=== PATIENT | female | born 1995 | race Caucasian/White ===

== ENCOUNTER 2016-08-30 18:23 | Emergency (ER) | payer MEDICAID ==
[~2016-08-30] VITALS: Ht 157.5 cm; Wt 62.5 kg
[~2016-08-30 18:23] MED LIST: FOLIC ACID
[2016-08-30 18:36] VITALS: Ht 157.5 cm; Wt 62.5 kg
[2016-08-30 20:15] LABS: HEMATOCRIT 35.7 % (37.0-47.0); HEMOGLOBIN 11.6 g/dl (12.0-16.0); MEAN CORPUSCULAR HEMOGLOBIN 25.5 pg (29.0-33.0); MEAN CORPUSCULAR HGB CONC 32.5 g/dl (32.0-37.0); MEAN CORPUSCULAR VOLUME 78.5 fl (82.0-101.0); MEAN PLATELET VOLUME 8.5 fl (7.4-10.4); PLATELET COUNT 314 10^3/UL (140-440); RED BLOOD COUNT 4.54 10^6/ul (4.20-5.40)
[2016-08-30 20:21] LABS: ADD UMIC YES; URINE BILIRUBIN (Dip) NEGATIVE (NEGATIVE); URINE BLOOD (Dip) NEGATIVE (NEGATIVE); URINE COLOR LT. YELLOW (YELLOW); URINE GLUCOSE (Dip) NEGATIVE (NEGATIVE); URINE KETONES (Dip) NEGATIVE (NEGATIVE); URINE LEUKOCYTE ESTERASE (Dip) TRACE (NEGATIVE); URINE NITRITE (Dip) NEGATIVE (NEGATIVE); URINE TOTAL PROTEIN (Dip) NEGATIVE (NEGATIVE); URINE UROBILINOGEN (Dip) 0.2 E.U./dL (0.1-1.0)
[2016-08-30 20:22] LABS: CONDITION 1; LH ANALYZER COMMENTS 1
[2016-08-30 20:29] LABS: BACTERIA,URINE FEW; SQUAMOUS EPITHELIAL CELL,UR FEW; URINE RBCS 0-2 /HPF (0)
[2016-08-30 21:11] VITALS: BP 119/71; PULSE 83; RESP 18; TEMP 98.9
--- NOTE | 2016-08-30 21:15 | ERD ---
ER Documentation Chief Complaint Date/Time DATE: 08/30/16 TIME: 21:10 Chief Complaint 5 weeks and dizzy spells HPI 21-year-old female Ab1 presenting with dizziness. She is currently 5 weeks by last menstrual period. She has had this in her prior pregnancies. At that time she was anemic. No vaginal bleeding. No significant vaginal discharge. She denies any fevers, chills, recent infection symptoms. No urinary frequency, burning, urgency. She is currently being treated for a yeast infection. ROS All systems reviewed and are negative except as per history of present illness. Medications Home Meds Reported Medications [Folic Acid] No Conflict Check 02/06/13 Allergies Allergies: Coded Allergies: No Known Allergy (Unverified , 02/06/13) PMhx/Soc History of Surgery: Yes (c/section x1) Anesthesia Reaction: No Hx Neurological Disorder: No Hx Respiratory Disorders: No Hx Psychiatric Problems: No Hx Miscellaneous Medical Probl: No Hx Alcohol Use: No Hx Substance Use: No Hx Tobacco Use: No Smoking Status: Never smoker Physical Exam Vitals Vital Signs Date Time Temp Pulse Resp B/P Pulse Ox O2 Delivery O2 Flow Rate FiO2 08/30/16 18:36 99.1 83 18 106/56 100 Physical Exam Const: Well-appearing, nontoxic, no distress Head: Atraumatic Eyes: Normal Conjunctiva ENT: Normal External Ears, Nose and Mouth. Neck: Full range of motion. No meningismus. Resp: Clear to auscultation bilaterally Cardio: Regular rate and rhythm, no murmurs Abd: Soft, non tender, non distended. Normal bowel sounds Skin: No petechiae or rashes Back: No midline or flank tenderness Ext: No cyanosis, or edema Neuro: M/S: Alert and oriented Face: EOMI, face and pharynx with normal sensation and function Motor: Normal strength throughout Sensation: Normal sensation throughout Speech: Normal Cerebel: Normal coordination Normal gait Psych: Normal Mood and Affect Result Diagram: 08/30/161999 Results 24 hrs Laboratory Tests Test 08/30/16 20:00 Blood Morphology Comment Hematocrit 35.7% Hemoglobin 11.6g/dl Mean Corpuscular Hemoglobin 25.5pg Mean Corpuscular Hemoglobin Concent 32.5g/dl Mean Corpuscular Volume 78.5fl Mean Platelet Volume 8.5fl Nucleated Red Blood Cells # 10^3/ul Platelet Count 84597^3/UL Red Blood Count 4.5410^6/ul Red Cell Distribution Width 16.0% Urine Bacteria FEW Urine Bilirubin NEGATIVE Urine Clarity CLEAR Urine Color LT. YELLOW Urine Glucose NEGATIVE% Urine Hemoglobin NEGATIVE Urine Ketones NEGATIVE Urine Leukocyte Esterase TRACE Urine Microscopic RBC 0-2/HPF Urine Microscopic WBC 0-2/HPF Urine Nitrite NEGATIVE Urine Specific [place] 1.010 Urine Squamous Epithelial Cells FEW Urine Total Protein NEGATIVE Urine Urobilinogen 0.2 E.U./dL Urine pH 7.0 White Blood Count 11.010^3/ul Procedures/MDM EKG: Rate/Rhythm: Normal Sinus Rhythm QRS, ST, T-waves: No changes consistent w/ acute ischemia, normal intervals Impression: No evidence of ischemia or arrhythmia The patients vitals are within normal limits and labs are unremarkable. The ECG did not show any concerning abnormalities. I have a low suspicion for an arrhythmia, acute coronary syndrome, PE or a CVA or intracranial hemorrhage. Etiology for dizziness is unknown but likely benign. She does have mild anemia , however I do not know if this is the reason for her dizziness. Her urinalysis showed only trace leukocytes. I will treat her for an infection at this time but I will send a urine culture. I have a low suspicion for acute surgical abdomen or ectopic as the patient's exam is benign. patient' s symptoms have stabilized while in the department and are suitable for outpatient follow up. I advised follow up with primary care physician and OB in 1-2 days. She was provided a copy of her blood test results. I encouraged hydration. Return precautions were discussed at bedside. Departure Diagnosis: Primary Impression: Dizziness of unknown cause Additional Impression: Anemia affecting in first trimester Condition: Stable Patient Instructions: : Body Changes, Possible Causes of Dizziness or Fainting Additional Instructions: Regrese a la jacob emergencia si usted esta empeorando. DUTCH THORNTON MD Aug 30, 2016 21:15
[2016-08-30 22:21] LABS: LYMPHOCYTES # 3.2 10^3/ul (0.8-2.9); MONOCYTE # 0.3 10^3/ul (0.3-0.9); NEUTROPHIL # 7.4 10^3/ul (1.6-7.5)
[2016-08-30 22:23] LABS: ANISOCYTOSIS 1+; MICROCYTOSIS 1+; PLATELET ESTIMATE PLT APPEAR ADEQUATE
== END 2016-08-30 21:12 | disposition home or self-care (01) ==
LOC: FTE 18:23
DX: O99.89 Other specified diseases and conditions complicating pregnancy, childbirth and the puerperium (principal); R42 Dizziness and giddiness; O99.011 Anemia complicating pregnancy, first trimester; Z3A.01 Less than 8 weeks gestation of pregnancy
CPT/HCPCS: 81001; 85025; 87086; 93005; Z7502; 81003

== ENCOUNTER 2017-01-27 19:22 | Outpatient (CLI) | payer MEDICAID ==
[~2017-01-27] VITALS: Ht 157.5 cm; Wt 68.3 kg
[2017-01-27] MEDS ORDERED: LACTATED RINGER'S 1,000 ML IV SCH (20:50)
[2017-01-27 20:51] VITALS: BP 98/56; PULSE 78; RESP 18; Ht 157.5 cm; Wt 68.3 kg
[2017-01-27] MEDS ORDERED: PREN-93 PO (20:54)
--- NOTE | 2017-01-27 22:05 | RADRPT ---
PROCEDURE: Obstetrical ultrasound. CLINICAL INDICATION: , evaluation. Pelvic pain. TECHNIQUE: Transabdominal and transvaginal sonographic images of the pelvis are obtained. COMPARISON: 12/05/2016 FINDINGS: Single intrauterine gestation. There is a cephalic presentation. Measurements were made in order to determine age. The results are as follows: BPD = 7.01 cm 28 weeks 1 day HC = 25.56 cm 27 weeks 5 days AC = 23.82 cm 28 weeks 1 day FL = 5.32 cm 28 weeks 2 days Heart rate = 138 beats per minute The placenta is anterior. There is no evidence for an abruption or placenta previa. Cervix is closed and measures 3.9 cm as visualized transvaginally. Ovaries are not visualized. IMPRESSION: Single intrauterine gestation of approximately 28 weeks 1 days by ultrasound criteria. [place] estimated weight = 1179 g; 95 percentile for gestational age of 26 weeks 3 days. Recommend confirmation of gestational age/ LMP. RPTAT: AADD .Adnrew Cho MD, MD Date Time Electronically viewed and signed by .Andrew Cho MD, on 01/27/2017 22:05 .B/
[2017-01-27 22:27] LABS: ADD UMIC YES; UR ASCORBIC ACID NEGATIVE (NEGATIVE); UR BACTERIA FEW /HPF (NONE SEEN); UR BILIRUBIN (Dip) NEGATIVE (NEGATIVE); UR BLOOD (Dip) NEGATIVE (NEGATIVE); UR CLARITY CLOUDY (CLEAR); UR COLOR YELLOW (YELLOW); UR GLUCOSE (Dip) NEGATIVE (NEGATIVE); UR KETONES (Dip) TRACE mg/dL (NEGATIVE); UR LEUKOCYTE ESTERASE (Dip) TRACE Leu/ul (NEGATIVE); UR MUCUS FEW /HPF (NONE SEEN); UR NITRITE (Dip) NEGATIVE (NEGATIVE); UR RBC 1 /HPF (0-5); UR SPECIFIC GRAVITY (Dip) 1.009 (1.003-1.030); UR SQUAMOUS EPITHELIAL CELL MANY /HPF (FEW); UR TOTAL PROTEIN (Dip) NEGATIVE (NEGATIVE); UR UROBILINOGEN (Dip) NEGATIVE (NEGATIVE)
--- NOTE | 2017-01-27 22:37 | PN ---
Triage Information Date/Time Weeks of Gestation 26+ : 4 Para: 2 Diabetes: none Additional information FOR r/O LABOR Objective Vital Signs Date Time Temp Pulse Resp B/P Pulse Ox O2 Delivery O2 Flow Rate FiO2 01/27/17 20:51 98.7 78 18 98/56 Room Air Results/Medications Results 24 hrs Laboratory Tests Test 01/27/17 21:10 Urine Color YELLOW Urine Clarity CLOUDY A Urine pH 7.0 Urine Specific [place] 1.009 Urine Ketones TRACE A Urine Nitrite NEGATIVE Urine Bilirubin NEGATIVE Urine Urobilinogen NEGATIVE Urine Leukocyte Esterase TRACE A Urine Microscopic RBC 1 Urine Microscopic WBC 3 Urine Squamous Epithelial Cells MANY A Urine Bacteria FEW A Urine Mucus FEW A Urine Hemoglobin NEGATIVE Urine Glucose NEGATIVE Urine Total Protein NEGATIVE Fibronectin NEGATIVE Medications Current Medications Lactated Ringer's (Lr) 1,000 ml @ 125 mls/hr Q8H IV Last administered on t 22:08; Admin Dose 125 MLS/HR; Start 01/27/17 at 20:50 Assessment/Plan NEG FFN CXL WNL NO CTXS NST REASSURING FOR GA PATIENT IS DISCHARGED WITH PRECAUTIONS PATIENT'S QUESTIONS ANSWERED MANNY SILVA M.D. Jan 27, 2017 22:36
--- NOTE | 2017-01-28 03:10 | TRIAGE ---
OB Triage Datetime Report Generated by CPN: 01/28/2017 03:09 Datetime: 01/27/2017 22:00 Labor Evaluation Frequency: 0 Monitor Mode: External Heart Rate FHR Baseline Rate: 145 Monitor Mode: External US FHR Baseline Changes: No Baseline Change Variability: Moderate 6-25 bpm Accelerations: 15X15 Decelerations: None Category: Category I Datetime: 01/27/2017 21:10 Vaginal Exam Dilatation (cms): 0.0 Effacement (%): 0 Station: -3 Exam By: A PARVEEN RN Vaginal Bleeding: None Cervix, Consistency: Firm Cervix, Position: Posterior Datetime: 01/27/2017 21:00 Labor Evaluation Frequency: 2/HR Monitor Mode: External Duration (sec)2399: 100 Quality: Mild Pattern: Normal: <= 5 Contractions in 10 Minutes Resting Tone [place]: Relaxed Heart Rate FHR Baseline Rate: 145 Monitor Mode: External US FHR Baseline Changes: No Baseline Change Variability: Moderate 6-25 bpm Accelerations: 15X15 Decelerations: None Category: Category I Datetime: 01/27/2017 20:00 Labor Evaluation Frequency: 5 Monitor Mode: External Duration (sec)2399: 60-100 Quality: Mild Pattern: Normal: <= 5 Contractions in 10 Minutes Resting Tone [place]: Relaxed Heart Rate FHR Baseline Rate: 135 Monitor Mode: External US FHR Baseline Changes: No Baseline Change Variability: Moderate 6-25 bpm Accelerations: 15X15 Decelerations: None Category: Category I Datetime: 01/27/2017 19:50 Membrane Status: Intact Datetime: 01/27/2017 19:45 Stage of : OB Triage Assessment Type: Triage Time of Arrival: 01/27/2017 19:15 Arrived By: Wheelchair Arrived From: Home Chief Complaint: ABDOMINAL PAIN @ 1800/ DIFFICULTY BREATHING @ 1800, FEELS FAINT/ COUGH X2 WKS Movement: Present Contractions: Irregular Rupture of Membranes: Denies Vaginal Bleeding: None (Annotations: Data stored by N on behalf of user) Vaginal Discharge: Denies Recent Sexual Intercouse: Denies Abdominal Trauma: Not Applicable Patient Complaints: None Time Provider Notified: 01/27/2017 19:47 Provider Notified: DR TRUJILLO Initial Plan: CALL [facility] Maternal Assessment Level of Consciousness: Fully Conscious DTR's/Clonus: DTRs 2+; No Clonus Headache: Denies Blurred Vision: No Respiratory Effort: Unlabored; Regular Rhythm; Equal Expansion Breath Sounds, Left: Clear and Equal Breath Sounds, Right: Clear and Equal Nausea/Vomiting: Denies RUQ Epigastric Pain: Denies Lower Extremities Edema: None Degree: None Upper Extremities Edema: None Degree: None Facial Edema: None Temperature Route: Oral Fall Risk Assessment History of Falling: (0) No Secondary Diagnosis: (0) No Ambulatory Aid: (0) Bedrest/Nurse Assist IV Therapy: (0) No Gait: (0) Normal/Bedrest/Immobile Mental Status: (0) Oriented to Own Ability Fall Score: 0 Fall Risk Score Definition: No Risk: No action required Monitor Mode: External Monitor Mode: External US Pain Assessment Pain Scale: 0
== END 2017-01-27 22:30 | disposition home or self-care (01) ==
LOC: OBT 19:22 → L-D 19:24 → OBT 22:30
PROVIDERS: ATTEND Obstetrics & Gynecology
DX: O26.893 Other specified pregnancy related conditions, third trimester (principal); Z3A.28 28 weeks gestation of pregnancy; R10.2 Pelvic and perineal pain
CPT/HCPCS: 76815; 76817; 81001; 82731; 87086; J7120

== ENCOUNTER 2017-03-12 00:16 | Emergency (ER) | payer MEDICAID ==
[~2017-03-12] VITALS: Ht 157.5 cm; Wt 71.5 kg
[~2017-03-12 00:16] MED LIST changes: +PREN-93 PO
[2017-03-12 00:35] VITALS: Ht 157.5 cm; Wt 71.5 kg
[2017-03-12] MEDS ORDERED: ACETAMINOPHEN 500 MG TAB PO STA (01:04)
--- NOTE | 2017-03-12 01:07 | ERD ---
ER Documentation Chief Complaint Date/Time DATE: 03/12/17 TIME: 01:05 Chief Complaint right lower molar ache HPI This is a 22-year-old female who is 32 weeks who presents to the emergency room for evaluation of a toothache. The patient states she has had a toothache for approximately 2 days and localizes it to the right lower tooth. She denies any trauma to the area and denies taking any medication because she that she is and did not know what she can take. She does not have a dentist and came to the ER for evaluation. ROS All systems reviewed and are negative except as per history of present illness. Medications Home Meds Reported Medications Vit No.124/Iron/FA ( Vitamin Tablet) 1 Each Tablet, 1 EACH PO, TAB 01/27/17 [Folic Acid] No Conflict Check 02/06/13 Allergies Allergies: Coded Allergies: No Known Allergy (Unverified , 01/27/17) PMhx/Soc History of Surgery: Yes (c/section x1) Anesthesia Reaction: No Hx Neurological Disorder: No Hx Respiratory Disorders: No Hx Psychiatric Problems: No Hx Miscellaneous Medical Probl: No Hx Alcohol Use: No Hx Substance Use: No Hx Tobacco Use: No Physical Exam Vitals Vital Signs Date Time Temp Pulse Resp B/P Pulse Ox O2 Delivery O2 Flow Rate FiO2 03/12/17 00:35 98.1 95 18 104/63 98 Physical Exam Const: No acute distress Head: Atraumatic Eyes: Normal Conjunctiva ENT: Right premolar extensive dental cavity, no signs of gingival abscess or dental abscess, normal External Ears, Nose and Mouth. Neck: Full range of motion..~ No meningismus. Resp: Clear to auscultation bilaterally Cardio: Regular rate and rhythm, no murmurs Abd: Soft, non tender, non distended. Normal bowel sounds Skin: No petechiae or rashes Back: No midline or flank tenderness Ext: No cyanosis, or edema Neur: Awake and alert Psych: Normal Mood and Affect Procedures/MDM This 22-year-old female presented to the ER for evaluation of dental pain. When I evaluated this patient she did have a dental carry at tooth #30. The patient was given 1 g of Tylenol in the emergency room. She will discharged home with a prescription for Tylenol, penicillin V potassium to prevent any infection, and a referral for outpatient dentistry. Departure Diagnosis: Primary Impression: Toothache Additional Impression: Dental caries Condition: Stable NEELIMA CHOE DO Mar 12, 2017 01:07
[2017-03-12] MEDS ORDERED: ACET650T26 PO (01:08)
[2017-03-12] MEDS ORDERED: PEN500 PO (01:08)
== END 2017-03-12 01:14 | disposition home or self-care (01) ==
LOC: E/R 00:16
DX: O99.613 Diseases of the digestive system complicating pregnancy, third trimester (principal); K08.89 Other specified disorders of teeth and supporting structures; K02.9 Dental caries, unspecified; Z3A.32 32 weeks gestation of pregnancy
CPT/HCPCS: Z7502; Z7610; 99283

== ENCOUNTER 2017-04-25 15:02 | Inpatient (IN) | payer MEDICAID ==
[2017-04-25] VITALS (12 sets, daily range): BP systolic 89–117; BP diastolic 46–75; PULSE 64–89; RESP 18–20; Ht 157.5 cm; Wt 74.5 kg
[~2017-04-25] VITALS: Ht 157.5 cm; Wt 74.5 kg
[~2017-04-25 15:02] MED LIST changes: +ACET650T26 PO; +PENI500T PO
[2017-04-25] MEDS ORDERED: LACTATED RINGER'S 1,000 ML IV SCH (15:20)
[2017-04-25] MEDS ORDERED: CEFAZOLIN 2 GM/50 ML (PMX) 50 ML IV SCH (15:30)
[2017-04-25] MEDS ORDERED: OXYTOCIN 30 UNITS/LR 500 ML IV PRN ×2 (15:30→22:30)
[2017-04-25] MEDS ORDERED: CARBOPROST 250 MCG INJ IM PRN ×2 (15:30→22:30)
[2017-04-25] MEDS ORDERED: MISOPROSTOL 200 MCG TAB PR PRN ×2 (15:30→22:30)
[2017-04-25] MEDS ORDERED: METHYLERGONOVINE 0.2 MG INJ IM PRN ×2 (15:30→22:30)
[2017-04-25] MEDS ORDERED: OXYTOCIN 30 UNITS/LR 500 ML IV SCH (15:30)
[2017-04-25 15:53] LABS: BASOPHIL # 0.1 10^3/ul (0.0-0.1); BASOPHILS % 0.5 % (0.0-2.0); EOSINOPHILS % 0.3 % (0.0-7.0); HEMATOCRIT 26.9 % (37.0-47.0); HEMOGLOBIN 8.5 g/dl (12.0-16.0); LYMPHOCYTES # 1.9 10^3/ul (0.8-2.9); LYMPHOCYTES % 20.6 % (15.0-51.0); MEAN CORPUSCULAR HEMOGLOBIN 23.6 pg (29.0-33.0); MEAN CORPUSCULAR HGB CONC 31.6 g/dl (32.0-37.0); MEAN CORPUSCULAR VOLUME 74.7 fl (82.0-101.0); MEAN PLATELET VOLUME 10.3 fl (7.4-10.4); MONOCYTE # 0.7 10^3/ul (0.3-0.9); MONOCYTES % 7.1 % (0.0-11.0); NEUTROPHIL # 6.5 10^3/ul (1.6-7.5); NEUTROPHILS % 70.8 % (39.0-77.0); PLATELET COUNT 208 10^3/UL (140-415); RED CELL DISTRIBUTION WIDTH 16.5 % (11.5-14.5); WHITE BLOOD COUNT 9.2 10^3/ul (4.8-10.8)
[2017-04-25 16:13] LABS: INR 1.05; PROTIME 13.7 Sec (12.2-14.2); PT RATIO 1.1
[2017-04-25 16:14] LABS: PARTIAL THROMBOPLASTIN TIME 25.3 Sec (25.0-35.0)
[2017-04-25] MEDS ORDERED: METOCLOPRAMIDE 10 MG INJ IV ONE (17:00)
[2017-04-25] MEDS ORDERED: CITRIC ACID/NA CITRATE 30 ML CUP PO ONE (17:00)
[2017-04-25] MEDS ORDERED: CITRIC ACID/NA CITRATE 30 ML CUP ONE (17:02)
[2017-04-25] MEDS ORDERED: METOCLOPRAMIDE 10 MG INJ ONE (17:02)
[2017-04-25] MEDS ORDERED: DIPHENHYDRAMINE 50 MG INJ IV PRN ×2 (19:30)
[2017-04-25] MEDS ORDERED: NALBUPHINE HCL (10 MG/1 ML) INJ IV PRN (19:30)
[2017-04-25] MEDS ORDERED: FENTAnyl 50 MCG/ML VIAL IV PRN ×3 (19:30)
[2017-04-25] MEDS ORDERED: MEPERIDINE 25 MG INJ IV PRN (19:30)
[2017-04-25] MEDS ORDERED: hydrALAzine 20 MG INJ IV PRN (19:30)
[2017-04-25] MEDS ORDERED: ALBUTEROL 0.083% (NEB) 2.5 MG/3 ML AMP HHN PRN (19:30)
[2017-04-25] MEDS ORDERED: ZOLPIDEM 5 MG TAB PO PRN (19:30)
[2017-04-25] MEDS ORDERED: LABETALOL HCL 20MG INJ IV PRN (19:30)
[2017-04-25] MEDS ORDERED: EPHEDrine SULFATE 50 MG/5 ML SYG IV PRN (19:30)
[2017-04-25] MEDS ORDERED: morphine 2 MG INJ IV PRN (19:30)
[2017-04-25] MEDS ORDERED: NALOXONE (0.4 MG/ML) INJ IV PRN (19:30)
[2017-04-25] MEDS ORDERED: IPRATROPIUM (NEB) 0.5 MG/2.5 ML AMP HHN PRN (19:30)
[2017-04-25] MEDS ORDERED: HYDROmorphONE (0.2 MG/ML) 10ML SYG IV PRN ×3 (19:30)
[2017-04-25] MEDS ORDERED: OXYCODONE/ACETAMINOPHEN (5/325) TAB PO PRN ×2 (19:30)
[2017-04-25] MEDS ORDERED: TRIMETHOBENZAMIDE 100 MG/ML VIAL IM PRN ×2 (19:30)
[2017-04-25] MEDS ORDERED: ONDANSETRON 4 MG INJ IV PRN ×2 (19:30)
[2017-04-25] MEDS ORDERED: morphine 4 MG/ML VIAL IV PRN (19:30)
--- NOTE | 2017-04-25 19:54 | HP ---
Date/Time of Note Date/Time of Note DATE: 04/25/17 TIME: 19:51 OB - History Hx of Present Free Text/Dictation Admitted for repeat at term Last Menstrual Period: Jul 26, 2016 Estimated Due Date: May 02, 2017 : 4 Para: 2 Spontaneous : 1 Care: Good Care Ultrasounds: Normal mid trimester US Obstetrical Complications: None Medical Complications: None Past Family/Social History * Past Medical, Surgical, Family and Obstetric Histories reviewed from chart. Blood Type: O+ Rubella: immune RPR/VDRL: Negative GBS Status: Negative HBsAG: Negative OB Admission Exam Physical Exam HEENT: WNL Heart: Rhythm Normal Lungs: Clear, Equal Abdomen: WNL Extremities: Normal Reflexes: Normal Cervical Dilatation: None Effacement: 0% Membranes: Intact Heart Rate: 130's Accelerations: Accelerations Present Decelerations: No Decelerations Varibility: Marked Contractions on Admission: None Last 72 hours Lab Results CBC & BMP 04/25/17 15:30 OB Assessment/Plan Reason for admission: section Other Assessment: Term gestation Previous 2 Other plan: Repeat delivery JAJA MALDONADO MD Apr 25, 2017 19:54
--- NOTE | 2017-04-25 19:57 | OPR ---
Operative Report Planned Procedure Procedure date Apr 25, 2017 Procedure(s) Repeat section Performed by see signature line Assisting provider: MANISH CARRILLO MD Anesthesiologist: Demetri Zee M.D. Pre-procedure diagnosis Term gestation Via section 2 Anesthesia Type: spinal Procedure Description Under satisfactory anaesthesia a Pfannenstiel incision was made two fingerbreadth above and parallel to the symphysis of pubis around the previous scar and previous scar was removed Incision was extended laterally to the border of the Recti muscles on either sides. Incision was carried down with sharp and blunt dissection until fascia was reached. Anterior Recti muscle fascia was incised in mid portion and incision extended laterally to the border of skin incision. Fascia was mobilized from muscle superiorly and Recti muscles were from midline using sharp and blunt dissection. Peritoneum was visualized; Avoiding bowel and bladder it was incised . Incision was extended superiorly and inferiorly. Bladder blade was placed. Posterior peritoneum covering the lower segment of the uterus and lower segment of the uterus were incised.Low transverse uterine incision was made on lower segment of the uterus. Incision extended laterally to the border of Round Lig. on either sides and baby was delivered from OT. position . Amniotic fluid appeared clear. Cord blood was obtained and cord had 3 vessels . Placenta was delivered spontaneously and appeared intact and complete. Intrauterine cavity was rubbed with a laparotomy sponge. Uterine incision was closed in 2 layers using running stitches of No1 Monocryl. Hemostasis appeared secure. Ovaries and Fallopian tubes were within normal limits. Announcing needle, lap sponge and instrument count to be correct abdomen was closed in layers as follows: Peritoneum and Recti muscles with running stitches of 20 Vicryl. Fascia with running stitch of No 1 PDS. Subcutaneous tissue with running stitches of 20 Chromic and skin was closed using sumit. Patient tolerated the procedure well and was transferred to [facility] in good condition. Post-Procedure Post-procedure diagnosis Status post Findings: \Life may be in OT position Clear amniotic fluid Normal right and left fallopian tubes and ovaries Estimated blood loss: other (Part 500 cc) Specimen(s): no Grafts/Implants: no Complication(s): no Pt Condition post procedure: stable Disposition: PACU Physician Certification I, the undersigned physician, hereby certify that I have discussed the procedure described in this consent form with this patient (or the patient's legal sales representative printing), including: * The risk and benefits of the procedure; * Any adverse reactions that may reasonably be expected to occur; * Any alternative efficacious methods of treatment which may be medically viable ; * The potential problems that may occur during recuperation; * Potential for blood transfusion and associated risks/benefits; and * Any research or economic interest I may have regarding this treatment. I further certify that the patient/legally responsible person was encouraged to ask question and that all questions were answered. JAJA MALDONADO MD Apr 25, 2017 19:57
[2017-04-25] MEDS ORDERED: LANOLIN 7 GM TUBE TOP PRN (22:30)
[2017-04-25] MEDS ORDERED: NA PHOSPHATE/BIPHOS 133 ML ENEMA PR PRN (22:30)
[2017-04-26 00:45] VITALS: BP 106/64; PULSE 80; RESP 18
[2017-04-26] MEDS: LACTATED RINGER'S 1,000 ML IV SCH ×4 (01:23→22:13)
[2017-04-26] MEDS: CEFAZOLIN 2 GM/50 ML (PMX) 50 ML IV SCH ×3 (01:23→17:27)
[2017-04-26 04:00] VITALS: BP 105/64; PULSE 77; RESP 18
[2017-04-26] MEDS: CLINDAMYCIN 300 MG CAP PO SCH ×4 (05:49→18:52)
[2017-04-26] MEDS: KETOROLAC 30 MG INJ IV PRN ×2 (05:49→15:53)
[2017-04-26 07:45] VITALS: BP 112/65; PULSE 80; RESP 18
[2017-04-26] MEDS: SENNA/DOCUSATE NA (8.6MG/50MG) TAB PO SCH ×2 (09:25→21:11)
[2017-04-26 10:20] LABS: ABNORMAL IP MESSAGE 1; HEMATOCRIT 22.4 % (37.0-47.0); MEAN CORPUSCULAR HEMOGLOBIN 22.9 pg (29.0-33.0); MEAN CORPUSCULAR HGB CONC 30.8 g/dl (32.0-37.0); MEAN CORPUSCULAR VOLUME 74.4 fl (82.0-101.0); MEAN PLATELET VOLUME 10.6 fl (7.4-10.4); PLATELET COUNT 186 10^3/UL (140-415); RED BLOOD COUNT 3.01 10^6/ul (4.20-5.40); RED CELL DISTRIBUTION WIDTH 16.9 % (11.5-14.5)
[2017-04-26 10:25] LABS: POSITIVE DIFF @See below
[2017-04-26 10:27] LABS: HEMOGLOBIN 6.9 g/dl (12.0-16.0)
[2017-04-26] MEDS ORDERED: BISACODYL 10 MG SUPP PR ONE (11:00)
[2017-04-26 12:07] VITALS: BP 107/53; PULSE 84; RESP 20
[2017-04-26 12:34] LABS: ANISOCYTOSIS 3+ (0-0); GIANT THROMBO% (M) 1 % (0-0); MICROCYTOSIS 3+ (0-0); MONOCYTES % (M) 2 % (0-11); PLATELET ESTIMATE INCREASED; POIKILOCYTOSIS 3+ (0-0); POLYCHROMASIA 1+ (0-0); SPHEROCYTES 1+ (0-0)
--- NOTE | 2017-04-26 17:40 | PN ---
Date/Time of Note Date/Time of Note DATE: 04/26/17 TIME: 17:38 Assessment/Plan VTE Prophylaxis VTE Prophylaxis Intervention: ambulation Lines/Catheters IV Catheter Type (from Nrsg): Peripheral IV Assessment/Plan Assessment/Plan Postop day 1 status post delivery Advance diet and ambulate Continue to monitor vital signs Hemoglobin and hematocrit observed because of low H&H on admission at this point no action is necessary Subjective 24 Hr Interval Summary No bowel movements Passing flatus Constitutional: BM, ambulates, flatus, improved, no complaints, urine output Pain Control: well controlled Exam/Review of Systems Vital Signs Vitals Vital Signs Date Time Temp Pulse Resp B/P Pulse Ox O2 Delivery O2 Flow Rate FiO2 04/26/17 15:30 96 21 04/26/17 12:07 98.0 84 20 107/53 Room Air Intake and Output 04/25/17 04/25/17 04/26/17 15:00 23:00 07:00 Intake Total 1175 ml Output Total 800 ml 600 ml Balance -800 ml 575 ml Exam Free Text/Dictation Abdomen is soft bowel sounds present Abdomen is not distended Incision is covered Constitutional: alert, oriented, well developed Psych: nl mood/affect, no complaints Head: atraumatic, normocephalic Eyes: EOMI, nl conjunctiva, nl lids, nl sclera ENMT: mucosa pink and moist, nl external ears & nose, nl lips & teeth, nl nasal mucosa & septum Neck: non-tender, supple Respiratory: clear to auscultation, normal air movement Cardiovascular: nl pulses, regular rate and rhythm Gastrointestinal: nl liver, spleen, non-tender, soft Drains None Musculoskeletal: nl extremities to inspection, nl gait and stance Extremities: normal pulses Neurological: CABINETMAKER HELPER II-XII intact, nl mental status, nl speech, nl strength Skin: nl turgor, rash or lesions Lymph: nl lymph nodes Results Result Diagram: 04/26/17 0932 JAJA MALDONADO MD Apr 26, 2017 17:40
[2017-04-26] MEDS ORDERED: HYDROCODONE/APAP (5/325) TAB PO PRN (18:14)
[2017-04-26] MEDS ORDERED: OXYCODONE/ACETAMINOPHEN (5/325) TAB PO PRN (18:14)
[2017-04-26 20:20] VITALS: BP 106/68; PULSE 100; RESP 19
[2017-04-26] MEDS ORDERED: BISACODYL 10 MG SUPP PR SCH (21:07)
[2017-04-26] MEDS: IBUPROFEN 800 MG TAB PO SCH (22:42)
[2017-04-27] MEDS: CLINDAMYCIN 300 MG CAP PO SCH ×4 (00:08→17:39)
[2017-04-27 04:00] VITALS: BP 104/62; PULSE 76; RESP 18
[2017-04-27] MEDS: IBUPROFEN 800 MG TAB PO SCH ×3 (05:42→21:31)
[2017-04-27] MEDS: LACTATED RINGER'S 1,000 ML IV SCH ×2 (05:44→22:13)
[2017-04-27 08:00] VITALS: BP 110/67; PULSE 64; RESP 18
[2017-04-27] MEDS: SENNA/DOCUSATE NA (8.6MG/50MG) TAB PO SCH ×2 (09:26→21:31)
[2017-04-27 09:47] LABS: ABNORMAL IP MESSAGE 1; BASOPHIL # 0.1 10^3/ul (0.0-0.1); BASOPHILS % 0.4 % (0.0-2.0); EOSINOPHILS # 0.1 10^3/ul (0.0-0.5); EOSINOPHILS % 0.9 % (0.0-7.0); HEMATOCRIT 22.2 % (37.0-47.0); LYMPHOCYTES # 2.3 10^3/ul (0.8-2.9); LYMPHOCYTES % 19.5 % (15.0-51.0); MEAN CORPUSCULAR HEMOGLOBIN 22.6 pg (29.0-33.0); MEAN CORPUSCULAR HGB CONC 30.2 g/dl (32.0-37.0); MEAN CORPUSCULAR VOLUME 74.7 fl (82.0-101.0); MEAN PLATELET VOLUME 10.3 fl (7.4-10.4); MONOCYTE # 0.8 10^3/ul (0.3-0.9); MONOCYTES % 6.6 % (0.0-11.0); NEUTROPHIL # 8.4 10^3/ul (1.6-7.5); NEUTROPHILS % 71.9 % (39.0-77.0); PLATELET COUNT 206 10^3/UL (140-415); RED BLOOD COUNT 2.97 10^6/ul (4.20-5.40); RED CELL DISTRIBUTION WIDTH 17.1 % (11.5-14.5); WHITE BLOOD COUNT 11.6 10^3/ul (4.8-10.8)
[2017-04-27 09:52] LABS: HEMOGLOBIN 6.7 g/dl (12.0-16.0); POSITIVE DIFF @See below
[2017-04-27 16:30] VITALS: BP 105/52; PULSE 76; RESP 18
--- NOTE | 2017-04-27 17:22 | DS ---
Date/Time of Note Date/Time of Note Home following the DATE: 04/27/17 TIME: 17:21 Obstetrical Discharge Record Final Diagnosis Final Diagnosis: Term delivered Section Section: Repeat Condition on Discharge Physical Assessment Last Vitals: See nurse's notes Voiding: Yes Bowel Movement: Yes Breast: Soft, non-tender, Filling Fundus: Firm Abdomen and Incision: Abdomen is soft nontender and not distended bowel sounds present Incision healing well without induration or erythema Episiotomy: Not applicable Calf Tenderness: No Patient Condition: Good JAJA MALDONADO MD Apr 27, 2017 17:22
--- NOTE | 2017-04-27 17:23 | PD.PPDC ---
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
[2017-04-27] MEDS ORDERED: IBUP800T25 PO (17:24)
[2017-04-27 20:00] VITALS: BP 116/74; PULSE 82; RESP 20
[2017-04-28] MEDS: CLINDAMYCIN 300 MG CAP PO SCH ×3 (00:16→12:11)
[2017-04-28 04:00] VITALS: BP 93/54; PULSE 68; RESP 20
[2017-04-28] MEDS: IBUPROFEN 800 MG TAB PO SCH ×2 (05:25→13:34)
[2017-04-28] MEDS: LACTATED RINGER'S 1,000 ML IV SCH ×2 (06:13→14:13)
[2017-04-28 08:30] VITALS: BP 99/66; PULSE 67; RESP 18
[2017-04-28] MEDS ORDERED: DIPHTH/TET/ACEL PERTUSS (ADULT) 0.5 ML VIAL IM* ONE (09:00)
[2017-04-28] MEDS ORDERED: MEASLES,MUMPS,RUBELLA VACCINE INJ SC* ONE (09:00)
[2017-04-28] MEDS: SENNA/DOCUSATE NA (8.6MG/50MG) TAB PO SCH (09:49)
== END 2017-04-28 15:15 | disposition home or self-care (01) | DRG 766 ==
LOC: L-D 15:02 → PP1 22:19
PROVIDERS: ADMIT Obstetrics & Gynecology; ATTEND Obstetrics & Gynecology
PROC: 10D00Z1 Extraction of Products of Conception, Low, Open Approach (ICD-10-PCS; principal; 2017-04-25 17:00)
DX: O34.211 Maternal care for low transverse scar from previous cesarean delivery (principal); Z37.0 Single live birth; Z3A.39 39 weeks gestation of pregnancy
CPT/HCPCS: 85025; 85610; 85730; 86592; 86850; 86900; 86901; 86920; 87340; 90715; 94760; 99464; J0690; J1885; J2590; J2765; J7120

== ENCOUNTER 2018-07-25 12:21 | Emergency (ER) | payer MEDICAID ==
[~2018-07-25] VITALS: Ht 167.6 cm; Wt 75.6 kg
[~2018-07-25 12:21] MED LIST changes: -ACET650T26 PO; +IBUP-1544 PO; -PENI500T PO
[2018-07-25 12:36] VITALS: BP 102/71; Ht 167.6 cm; Wt 75.6 kg
[2018-07-25] MEDS ORDERED: PROM6.2515 PO (14:28)
[2018-07-25] MEDS ORDERED: AZIT250T PO (14:28)
[2018-07-25] MEDS ORDERED: BENZ-6 PO (14:28)
[2018-07-25 14:43] VITALS: PULSE 89; RESP 18
--- NOTE | 2018-07-25 14:49 | ERD ---
ER Documentation Chief Complaint Chief Complaint Complains of cough and fever x 3 days HPI 23-year-old female presenting with cough and fever times 3 days. Patient has runny nose with sore throat. She states that her fever is worse at night. She has not taken her medication today. Her children have similar symptoms. Denies medical problems. NKDA. Surgical history . Social history denies ROS All systems reviewed and are negative except as per history of present illness. Medications Home Meds Active Scripts Benzonatate* (Tessalon Perle*) 100 Mg Capsule, 100 MG PO Q8H PRN for COUGH, #30 CAP Prov:JEANETTE JOHN PA-C 07/25/18 Promethazine Hcl* (Promethazine Hcl* Syrup) 6.25 Mg/5 Ml Syrup, 6.25 MG PO Q6H PRN for COUGH, #100 ML Prov:JEANETTE JOHN PA-C 07/25/18 Azithromycin* (Zithromax*) 250 Mg Tablet, 250 MG PO .ZPACK DIRECTED, #6 TAB TAKE 500 MG (2 TABS) THE FIRST DAY THEN 250 MG (1 TAB) DAYS 2-5 Prov:JEANETTE JOHN PA-C 07/25/18 Ibuprofen* (Ibuprofen*) 800 Mg Tablet, 800 MG PO Q8, #30 TAB 0 Refills Prov:JAJA MALDONADO MD 04/27/17 Reported Medications Vit No.124/Iron/FA ( Vitamin Tablet) 1 Each Tablet, 1 EACH PO, TAB 01/27/17 [Folic Acid] No Conflict Check 02/06/13 Allergies Allergies: Coded Allergies: No Known Allergy (Unverified , 01/27/17) PMhx/Soc History of Surgery: No Anesthesia Reaction: No Hx Neurological Disorder: No Hx Respiratory Disorders: No Hx Cardiac Disorders: No Hx Psychiatric Problems: No Hx Miscellaneous Medical Probl: No Hx Alcohol Use: No Hx Substance Use: No Hx Tobacco Use: No FmHx Family History: No diabetes, No coronary disease, No other Physical Exam Vitals Vital Signs Date Temp Pulse Resp B/P (MAP) Pulse Ox O2 O2 Flow FiO2 Time Delivery Rate 07/25/18 89 18 Room Air 14:43 07/25/18 98.0 109 20 102/71 97 12:36 (81) Physical Exam GENERAL: The patient is well-appearing, well-nourished, in no acute distress HEENT: Atraumatic. Conjunctivae are pink. Pupils equal, round, and reactive to light. There is no scleral icterus. Tympanic membranes clear bilaterally. Oropharynx clear. NECK: C-spine is soft and supple. There is no meningismus. There is no cervical lymphadenopathy. CHEST: Clear to auscultation bilaterally. There are no rales, wheezes or rhonchi. HEART: Regular rate and rhythm. No murmurs, clicks, rubs or gallops. No S3 or S4. ABDOMEN:Soft, nontender and nondistended. Good bowel sounds. No rebound or guarding. No gross peritonitis. No gross organomegaly or masses. No Ricardo sign or McBurney point tenderness. Procedures/MDM MDM: 23-year-old female presenting with cough and cold. I have low suspicion for meningitis or sepsis. Patient will be treated with antibiotics as she may have beginnings of a sinus infection. I have low suspicion for pneumonia. I have low suspicion for respiratory distress or hypoxia. Vitals are stable and exam is non-concerning. Patient is discharged with supportive medications and told to follow-up with primary care within 1-2 days for close evaluation. Patient is told symptoms change or worsen to return immediately to the ER. All questions answered at discharge Departure Diagnosis: Primary Impression: Cough Condition: Stable Patient Instructions: Cough, Chronic, Uncertain Cause, (Adult) Referrals: [facility] YOU HAVE RECEIVED A MEDICAL SCREENING EXAM AND THE RESULTS INDICATE THAT YOU DO NOT HAVE A CONDITION THAT REQUIRES URGENT TREATMENT IN THE EMERGENCY DEPARTMENT. FURTHER EVALUATION AND TREATMENT OF YOUR CONDITION CAN WAIT UNTIL YOU ARE SEEN IN YOUR DOCTORS OFFICE WITHIN THE NEXT 1-2 DAYS. IT IS YOUR RESPONSIBILITY TO MAKE AN APPOINTMENT FOR FOL- CARE. IF YOU HAVE A PRIMARY DOCTOR --you should call your primary doctor and schedule an appointment IF YOU DO NOT HAVE A PRIMARY DOCTOR YOU CAN CALL OUR PHYSICIAN REFERRAL HOTLINE AT IF YOU CAN NOT AFFORD TO SEE A PHYSICIAN YOU CAN CHOSE FROM THE FOLLOWING [facility] [address] [facility]. [facility] [address] [facility]. [facility] [address] [facility]. [facility] [address] [facility] [address] [facility]. [facility] [address] Additional Instructions: FOLLOW UP WITH YOUR PRIMARY CARE PHYSICIAN TOMORROW.Return to this facility if you are not improving as expected. JEANETTE JOHN PA-C Jul 25, 2018 14:49
== END 2018-07-25 14:56 | disposition home or self-care (01) ==
LOC: FTE 12:21
DX: R05 Cough (principal)
CPT/HCPCS: 99283

== ENCOUNTER 2018-11-21 14:24 | Emergency (ER) | payer SELFPAY ==
[~2018-11-21] VITALS: Ht 160 cm; Wt 76.3 kg
[~2018-11-21 14:24] MED LIST changes: +AZIT250T PO; +BENZ-6 PO; +PROM6.2515 PO
[2018-11-21 15:08] VITALS: BP 125/69; PULSE 71; RESP 20; Ht 160 cm; Wt 76.3 kg
[2018-11-22] MEDS ORDERED: IBUP-1542 PO (16:04)
== END 2018-11-21 20:52 | disposition left against medical advice (07) ==
LOC: E/R 14:24
DX: Z53.21 Procedure and treatment not carried out due to patient leaving prior to being seen by health care provider (principal)
CPT/HCPCS: 93005

== ENCOUNTER 2018-11-22 13:30 | Emergency (ER) | payer MEDICAID ==
[~2018-11-22] VITALS: Wt 69.0 kg
[2018-11-22 13:39] VITALS: BP 122/74; PULSE 66; RESP 18
[2018-11-22] MEDS ORDERED: IBUPROFEN 600 MG TAB PO ONE (15:30)
[2018-11-22] MEDS ORDERED: IBUP-1542 PO (16:04)
--- NOTE | 2018-11-22 16:07 | ERD ---
ER Documentation Chief Complaint Chief Complaint CWP FOR THE PAST 4 DAYS. RADIATING TO SHOULDER. NO DIAPHORESIS. HPI 23-year-old female presents with anterior chest wall pain rating to the back pain is worse with deep breathing. She denies any history of trauma patient has no recent URIs patient has syncope, hemoptysis, calf swelling, shortness of breath. ROS All systems reviewed and are negative except as per history of present illness. Medications Home Meds Active Scripts Ibuprofen* (Motrin*) 600 Mg Tab, 600 MG PO Q6, #20 TAB Prov:CARMELO BRUCE MD 11/22/18 Benzonatate* (Tessalon Perle*) 100 Mg Capsule, 100 MG PO Q8H PRN for COUGH, #30 CAP Prov:JEANETTE JOHN PA-C 07/25/18 Promethazine Hcl* (Promethazine Hcl* Syrup) 6.25 Mg/5 Ml Syrup, 6.25 MG PO Q6H PRN for COUGH, #100 ML Prov:JEANETTE JOHN PA-C 07/25/18 Azithromycin* (Zithromax*) 250 Mg Tablet, 250 MG PO .ZPACK DIRECTED, #6 TAB TAKE 500 MG (2 TABS) THE FIRST DAY THEN 250 MG (1 TAB) DAYS 2-5 Prov:JEANETTE JOHN PA-C 07/25/18 Ibuprofen* (Ibuprofen*) 800 Mg Tablet, 800 MG PO Q8, #30 TAB 0 Refills Prov:JAJA MALDONADO MD 04/27/17 Reported Medications Vit No.124/Iron/FA ( Vitamin Tablet) 1 Each Tablet, 1 EACH PO, TAB 01/27/17 [Folic Acid] No Conflict Check 02/06/13 Allergies Allergies: Coded Allergies: No Known Allergy (Unverified , 01/27/17) PMhx/Soc History of Surgery: Yes () Anesthesia Reaction: No Hx Neurological Disorder: No Hx Respiratory Disorders: No Hx Cardiac Disorders: No Hx Psychiatric Problems: No Hx Miscellaneous Medical Probl: No Hx Alcohol Use: No Hx Substance Use: No Hx Tobacco Use: No Smoking Status: Never smoker FmHx Family History: No diabetes, No coronary disease, No other Physical Exam Vitals Vital Signs Date Temp Pulse Resp B/P (MAP) Pulse Ox O2 O2 Flow FiO2 Time Delivery Rate 11/22/18 98.0 66 18 122/74 98 13:39 (90) Physical Exam Const: No acute distress Head: Atraumatic Eyes: Normal Conjunctiva ENT: Normal External Ears, Nose and Mouth. Neck: Full range of motion. No meningismus. Resp: Clear to auscultation bilaterally with mildly reproducible anterior chest wall pain. Cardio: Regular rate and rhythm, no murmurs Abd: Soft, non tender, non distended. Normal bowel sounds Skin: No petechiae or rashes Back: No midline or flank tenderness Ext: No cyanosis, or edema .no calf swelling or Homans sign. Neur: Awake and alert Psych: Normal Mood and Affect Results 24 hrs Current Medications Medications Dose Sig/Thor Start Time Status Last (Trade) Ordered Route PRN Stop Time Admin Dose Reason Admin Ibuprofen 600 mg ONCE ONCE 11/22/18 DC 11/22/18 (Motrin) PO 15:30 15:26 11/22/18 15:31 Procedures/MDM Chest X-ray 1V Interpreted by me: Soft Tissue: No acute abnormalities Bones: No acute abnormalities Mediastinum/Cardiac Silhouette/Lungs: No acute abnormalities. Impression have normal 1 view chest x-ray EKG: Rate/Rhythm: Normal Sinus Rhythm. Rate equals 75 QRS, ST, T-waves: No changes consistent w/ acute ischemia Impression: No evidence of ischemia or arrhythmia. Patient is PERC negative. Patient presents with anterior chest wall pain which is reproducible and pleuritic. She likely has costochondritis or chest wall strain. She will be treated with ibuprofen, further observation at home and return precautions. The patient was stable with no new complaints during the ER course. Clinically, there is no current evidence to suggest meningitis, sepsis, acute abdomen, pneumonia, stroke, acute coronary syndrome, pulmonary embolism, aortic dissection or any other emergent condition appearing to require further evaluation or hospitalization. Patient counseled regarding my diagnostic impression and care plan. Prior to discharge all questions answered. Pt agrees with treatment plan and understands strict return precautions. Pt is instructed to follow up with primary care provider within 24-48 hours. Precautionary instructions provided including instructions to return to the ER if not improving or for any worsening or changing symptoms or concerns. Departure Diagnosis: Primary Impression: Chest pain Chest pain type: unspecified Qualified Codes: R07.9 - Chest pain, unspecified Condition: Stable Patient Instructions: Costochondritis, Chest Pain, Uncertain Cause Referrals: NO PRIMARY,CARE PHYSICIAN (PCP) Additional Instructions: X-ray and EKG normal. Likely chest wall strain or costochondritis. Recheck for new worsening symptoms has not fevers, blood, shortness of breath, new or worsening symptoms. CARMELO BRUCE MD Nov 22, 2018 16:07
== END 2018-11-22 16:17 | disposition home or self-care (01) ==
LOC: FTE 13:30
DX: R07.89 Other chest pain (principal)
CPT/HCPCS: 71045; 93005; Z7502; Z7610

== ENCOUNTER 2018-12-23 13:16 | Emergency (ER) | payer MEDICAID ==
[~2018-12-23] VITALS: Ht 157.5 cm; Wt 77.2 kg
[~2018-12-23 13:16] MED LIST changes: +IBUP-1542 PO
[2018-12-23 13:20] VITALS: BP 143/90; PULSE 71; RESP 18; Ht 157.5 cm; Wt 77.2 kg
[2018-12-23] MEDS ORDERED: IBUPROFEN 600 MG TAB PO ONE (14:30)
[2018-12-23] MEDS ORDERED: CIPR500T4 PO (16:04)
[2018-12-23] MEDS ORDERED: PHEN-538 PO (16:04)
[2018-12-23] MEDS ORDERED: ACET-141 PO (16:04)
--- NOTE | 2018-12-23 16:05 | ERD ---
ER Documentation Chief Complaint Chief Complaint painful urination x1wk ROS All systems reviewed and are negative except as per history of present illness. Medications Home Meds Active Scripts Acetaminophen* (Acetaminophen*) 500 MG Extra Strength Tablet, 500 MG PO Q4H PRN for PAIN AND OR ELEVATED TEMP, #30 TAB Prov:DIANE PAULA 12/23/18 Phenazopyridine Hcl* (Pyridium*) 200 Mg Tab, 200 MG PO TID PRN for URINARY PAIN for 2 Days, #6 TAB Prov:DIANE PAULA DO 12/23/18 Ciprofloxacin Hcl* (Ciprofloxacin Hcl*) 500 Mg Tablet, 500 MG PO BID for uti for 7 Days, TAB Prov:DIANE PAULA DO 12/23/18 Ibuprofen* (Motrin*) 600 Mg Tab, 600 MG PO Q6, #20 TAB Prov:CARMELO BRUCE MD 11/22/18 Benzonatate* (Tessalon Perle*) 100 Mg Capsule, 100 MG PO Q8H PRN for COUGH, #30 CAP Prov:JEANETTE JOHN PA-C 07/25/18 Promethazine Hcl* (Promethazine Hcl* Syrup) 6.25 Mg/5 Ml Syrup, 6.25 MG PO Q6H PRN for COUGH, #100 ML Prov:JEANETTE JOHN PA-C 07/25/18 Azithromycin* (Zithromax*) 250 Mg Tablet, 250 MG PO .ZPACK DIRECTED, #6 TAB TAKE 500 MG (2 TABS) THE FIRST DAY THEN 250 MG (1 TAB) DAYS 2-5 Prov:JEANETTE JOHN PA-C 07/25/18 Ibuprofen* (Ibuprofen*) 800 Mg Tablet, 800 MG PO Q8, #30 TAB 0 Refills Prov:JAJA MALDONADO MD 04/27/17 Reported Medications Vit No.124/Iron/FA ( Vitamin Tablet) 1 Each Tablet, 1 EACH PO, TAB 01/27/17 [Folic Acid] No Conflict Check 02/06/13 Allergies Allergies: Coded Allergies: No Known Allergy (Unverified , 01/27/17) PMhx/Soc History of Surgery: Yes () Anesthesia Reaction: No Hx Neurological Disorder: No Hx Respiratory Disorders: No Hx Cardiac Disorders: No Hx Psychiatric Problems: No Hx Miscellaneous Medical Probl: No Hx Alcohol Use: No Hx Substance Use: No Hx Tobacco Use: No Smoking Status: Never smoker Physical Exam Vitals Vital Signs Date Temp Pulse Resp B/P (MAP) Pulse Ox O2 O2 Flow FiO2 Time Delivery Rate 12/23/18 98.1 71 18 143/90 97 13:20 (107) Physical Exam Const: No acute distress Head: Atraumatic Eyes: Normal Conjunctiva ENT: Normal External Ears, Nose and Mouth. Neck: Full range of motion. No meningismus. Resp: Clear to auscultation bilaterally Cardio: Regular rate and rhythm, no murmurs Abd: Soft, non tender, non distended. Normal bowel sounds Skin: No petechiae or rashes Back: No midline or flank tenderness Ext: No cyanosis, or edema Neur: Awake and alert Psych: Normal Mood and Affect Result Diagram: 12/23/18 1410 12/23/18 1410 Results 24 hrs Laboratory Tests Test 12/23/18 14:10 12/23/18 14:11 12/23/18 14:21 White Blood Count 7.3 10^3/ul Red Blood Count 4.69 10^6/ul Hemoglobin 10.6 g/dl Hematocrit 35.0 % Mean Corpuscular Volume 74.6 fl Mean Corpuscular Hemoglobin 22.6 pg Mean Corpuscular 30.3 g/dl Hemoglobin Concent Red Cell Distribution Width 17.0 % Platelet Count 353 10^3/UL Mean Platelet Volume 9.7 fl Immature Granulocytes % 0.300 % Neutrophils % 60.3 % Lymphocytes % 29.8 % Monocytes % 7.4 % Eosinophils % 1.5 % Basophils % 0.7 % Nucleated Red Blood Cells % 0.0 /100WBC Immature Granulocytes # 0.020 10^3/ul Neutrophils # 4.4 10^3/ul Lymphocytes # 2.2 10^3/ul Monocytes # 0.5 10^3/ul Eosinophils # 0.1 10^3/ul Basophils # 0.1 10^3/ul Nucleated Red Blood Cells # 0.0 10^3/ul Sodium Level 137 mmol/L Potassium Level 4.2 mmol/L Chloride Level 106 mmol/L Carbon Dioxide Level 24 mmol/L Anion Gap 7 Blood Urea Nitrogen 7 mg/dl Creatinine 0.64 mg/dl Est Glomerular Filtrat > 60 mL/min Rate mL/min Glucose Level 129 mg/dl Calcium Level 8.8 mg/dl Total Bilirubin 0.3 mg/dl Direct Bilirubin 0.00 mg/dl Indirect Bilirubin 0.3 mg/dl Aspartate Amino 21 IU/L Transf (AST/SGOT) Alanine 17 IU/L Aminotransferase (ALT/SGPT) Alkaline Phosphatase 99 IU/L Total Protein 7.2 g/dl Albumin 4.0 g/dl Globulin 3.20 g/dl Albumin/Globulin Ratio 1.25 Lipase 47 U/L Urine Color YELLOW Urine Clarity SLIGHTLY CLOUDY Urine pH 6.0 Urine Specific [place] 1.015 Urine Ketones NEGATIVE mg/dL Urine Nitrite NEGATIVE mg/dL Urine Bilirubin NEGATIVE mg/dL Urine Urobilinogen NEGATIVE mg/dL Urine Leukocyte Esterase TRACE Razia/ul Urine Microscopic RBC 2 /HPF Urine Microscopic WBC 19 /HPF Urine Squamous Epithelial Cells MODERATE /HPF Urine Bacteria FEW /HPF Urine Mucus FEW /HPF Urine Hemoglobin NEGATIVE mg/dL Urine Glucose NEGATIVE mg/dL Urine Total Protein NEGATIVE mg/dl POC Beta HCG, Qualitative NEGATIVE Current Medications Medications Dose Sig/Thor Start Time Status Last (Trade) Ordered Route PRN Stop Time Admin Dose Reason Admin Ibuprofen 600 mg ONCE ONCE 12/23/18 DC 12/23/18 (Motrin) PO 14:30 14:24 12/23/18 14:31 Departure Diagnosis: Primary Impression: Pyelonephritis Condition: Fair Patient Instructions: Pyelonephritis, Female (Adult) Referrals: [facility] YOU HAVE RECEIVED A MEDICAL SCREENING EXAM AND THE RESULTS INDICATE THAT YOU DO NOT HAVE A CONDITION THAT REQUIRES URGENT TREATMENT IN THE EMERGENCY DEPARTMENT. FURTHER EVALUATION AND TREATMENT OF YOUR CONDITION CAN WAIT UNTIL YOU ARE SEEN IN YOUR DOCTORS OFFICE WITHIN THE NEXT 1-2 DAYS. IT IS YOUR RESPONSIBILITY TO MAKE AN APPOINTMENT FOR FOLOW-UP CARE. IF YOU HAVE A PRIMARY DOCTOR --you should call your primary doctor and schedule an appointment IF YOU DO NOT HAVE A PRIMARY DOCTOR YOU CAN CALL OUR PHYSICIAN REFERRAL HOTLINE AT IF YOU CAN NOT AFFORD TO SEE A PHYSICIAN YOU CAN CHOSE FROM THE FOLLOWING [facility] [address] [place]. [facility] [address] [facility] [address] [facility] [address] [facility]. [facility] [address] [facility]. [facility] [address] Additional Instructions: Llame al doctor MAANA y marcelle brady TAMMY PARA DENTRO DE 1-2 HENLEY.Dgale a la secretaria que nosotros le instruimos hacer esta tammy.Avise o llame si bhatia condicin se empeora antes de la tammy. Regresa aqui si peor o no mejor. DIANE PAULA DO December 23, 2018 16:05
== END 2018-12-23 16:12 | disposition home or self-care (01) ==
LOC: FTE 13:16
DX: N12 Tubulo-interstitial nephritis, not specified as acute or chronic (principal)
CPT/HCPCS: 36415; 76775; 80053; 81001; 81025; 83690; 85025; Z7502; Z7610